=== PATIENT | male | born 1940 | race Two or more races ===

== ENCOUNTER 2021-01-14 07:00 | Inpatient (IN) | payer OTHER ==
[~2021-01-14] VITALS: Ht 154.9 cm; Wt 77.1 kg
[~2021-01-14 07:00] MED LIST: CLONAZEP PO; FORTAMET500 MG PO; LOSARTAN PO
[2021-01-14] MEDS ORDERED: LOSARTAN POTAS100 MG (15:55)
[2021-01-14] MEDS ORDERED: CLONAZEPAM0.5 MG (15:55)
[2021-01-14] MEDS ORDERED: FAMOTIDINE20 MG (15:55)
[2021-01-14] MEDS ORDERED: HYDROCHLOROTH12.5 MG (15:55)
[2021-01-17] MEDS ORDERED: PERCOCET 5-3251 EACH PO (07:55)
[2021-01-17] MEDS ORDERED: DUI500 PO (07:55)
[2021-01-17] MEDS ORDERED: ELIQUIS2.5 MG PO (07:55)
[2021-01-24] MEDS ORDERED: ELIQUIS2.5 MG PO (08:02)
[2021-01-24] MEDS ORDERED: PERCOCET 5-3251 EACH PO (08:02)
== END 2021-01-25 17:15 | DRG 470 ==
LOC: CIR.AMB 07:00 → O/R 15:23 → SURH 01-15 14:46
PROVIDERS: ADMIT Orthopaedic Surgery; ATTEND Orthopaedic Surgery
PROC: 0SRD0J9 Replacement of Left Knee Joint with Synthetic Substitute, Cemented, Open Approach (ICD-10-PCS; principal; 2021-01-14 13:00)
PROC: 4A12X4Z Monitoring of Cardiac Electrical Activity, External Approach (ICD-10-PCS; 2021-01-18)
PROC: 30233N1 Transfusion of Nonautologous Red Blood Cells into Peripheral Vein, Percutaneous Approach (ICD-10-PCS; 2021-01-20)
DX: M17.12 Unilateral primary osteoarthritis, left knee (principal); D62 Acute posthemorrhagic anemia; M81.0 Age-related osteoporosis without current pathological fracture; I10 Essential (primary) hypertension; E11.9 Type 2 diabetes mellitus without complications; Z20.822 Contact with and (suspected) exposure to COVID-19; Z79.4 Long term (current) use of insulin; Z96.652 Presence of left artificial knee joint; R00.0 Tachycardia, unspecified; E86.9 Volume depletion, unspecified